=== PATIENT | female | born 1980 | race Hispanic/Latino ===

== ENCOUNTER 2018-07-05 12:38 | Emergency (ER) | payer BC ==
[~2018-07-05] VITALS: Ht 160 cm; Wt 95.3 kg
--- OUTSIDE RECORDS SUMMARY | 2018-07-05 12:40 | XMS REPORT ---
Author Author [facility] Address Unknown Phone Unavailable Care Team Providers Care Medical Lab Assistant Name Role Phone Unavailable Unavailable Payers Payer Name Policy Type Policy Number Effective Date Expiration Date Problems This patient has no known problems. Allergies, Adverse Reactions, Alerts Allergy Name Allergy Type Status Severity Reaction(s) Onset Date Inactive Date Treating Clinician Comments Secobarbital Sodium DA Active [place] 2015-08-25 00:00:00 Medications This patient has no known medications.
--- OUTSIDE RECORDS SUMMARY | 2018-07-05 12:40 | XMS REPORT | Continuity of Care Document ---
Author Author [facility] Interface Address Unknown Phone Unavailable Problems Problem Status Onset Date Classification Date Reported Comments Source UNK Active 03/03/2016 [facility] Discharge Diagnosis: Acute hemorrhoid 11/19/2015 11/22/2015 [facility] FINGER PAIN Active 11/19/2015 [facility] Hemorrhoids Active Problem 09/16/2016 [facility] Obesity Active Problem 09/16/2016 [facility] Medications Medication Details Route Status Patient Instructions Ordering Provider Order Date Source Dexamethasone 4 mg, Route: IVP, ONCE, Dosing Weight 98.267, kg, PRN Nausea & Vomiting, Start date: 09/13/16 9:26:00 CDT No Longer Active 09/13/2016 [facility] Ondansetron 4 mg, Route: IVP, ONCE, Dosing Weight 98.267, kg, PRN Nausea & Vomiting, Start date: 09/13/16 9:26:00 CDT No Longer Active 09/13/2016 [facility] Flumazenil 0.2 mg, Route: IVP, PRN, Dosing Weight 98.267, kg, PRN Benzodiazepine Reversal, Initial dose, Start date: 09/13/16 9:26:00 CDT, Duration: 30 day, Stop date: 10/13/16 9:25:00 CDT No Longer Active 09/13/2016 [facility] Fentanyl 50 microgram, Route: IVP, Q5Min, Dosing Weight 98.267, kg, PRN Pain Score 7-10, Priority: Routine, Start date: 09/13/16 9:26:00 CDT, Duration: 2 doses or times, Stop date: Limited # of times No Longer Active 09/13/2016 [facility] Hydromorphone 0.5 mg, Route: IVP, Q5Min, Dosing Weight 98.267, kg, PRN Pain Score 7-10, Start date: 09/13/16 9:26:00 CDT, Duration: 4 doses or times, Stop date: Limited # of times No Longer Active 09/13/2016 [facility] Morphine 4 mg, Route: IVP, Q5Min, Dosing Weight 98.267, kg, PRN Pain Score 7-10, Start date: 09/13/16 9:26:00 CDT, Duration: 3 doses or times, Stop date: Limited # of times No Longer Active 09/13/2016 [facility] Albuterol 0.83 MG/ML Inhalant Solution 2.49 mg, Route: NEB, Q20Min, Dosing Weight 98.267, kg, PRN Wheezing, Priority: STAT, Start date: 09/13/16 9:26:00 CDT, Duration: 30 day, Stop date: 10/13/16 9:25:00 CDT No Longer Active 09/13/2016 [facility] Diphenhydramine 12.5 mg, Route: IVP, Drug form: INJ, Q6H, Dosing Weight 98.267, kg, PRN Itching, Start date: 09/13/16 9:26:00 CDT, Duration: 30 day, Stop date: 10/13/16 9:25:00 CDT No Longer Active 09/13/2016 [facility] Naloxone 0.4 mg, Route: IVP, Q2MIN, Dosing Weight 98.267, kg, PRN Narcotic Reversal, Start date: 09/13/16 9:26:00 CDT, Duration: 8 doses or times, Stop date: Limited # of times No Longer Active 09/13/2016 [facility] Calcium Chloride 0.0014 MEQ/ML / Potassium Chloride 0.004 MEQ/ML / Sodium Chloride 0.103 MEQ/ML / Sodium Lactate 0.028 MEQ/ML Injectable Solution 1,000 mL, Rate: 125 ml/hr, Infuse over: 8 hr, Route: IV, Dosing Weight 98.267 kg, Total Volume: 1,000, Start date: 09/13/16 9:26:00 CDT, Duration: 30 day, Stop date: 10/13/16 9:25:00 CDT No Longer Active 09/13/2016 [facility] Meperidine 12.5 mg, Route: IVP, Q30Min, Dosing Weight 98.267, kg, PRN Other -See Comment, For shivering, Start date: 09/13/16 9:26:00 CDT, Duration: 2 doses or times, Stop date: Limited # of times No Longer Active 09/13/2016 [facility] Acetaminophen 1,000 mg, Route: PO, Drug form: TAB, ONCE, Dosing Weight 98.267, kg, PRN Pain Score 1-3, Start date: 09/13/16 9:26:00 CDT, Duration: 1 doses or times, Stop date: Limited # of times No Longer Active 09/13/2016 [facility] Labetalol 10 mg, Route: IVP, Q5Min, Dosing Weight 98.267, kg, PRN Elevated BP, Start date: 09/13/16 9:26:00 CDT, Duration: 5 doses or times, Stop date: Limited # of times No Longer Active 09/13/2016 [facility] Hydralazine 10 mg, Route: IVP, Q20Min, Dosing Weight 98.267, kg, PRN Elevated BP, Start date: 09/13/16 9:26:00 CDT, Duration: 2 doses or times, Stop date: Limited # of times No Longer Active 09/13/2016 [facility] esmolol 10 mg, Route: IVP, Q5Min, Dosing Weight 98.267, kg, PRN Other -See Comment, Start date: 09/13/16 9:26:00 CDT, Duration: 5 doses or times, Stop date: Limited # of times No Longer Active 09/13/2016 [facility] Oxycodone 5 mg, Route: PO, Drug form: TAB, Q4H, Dosing Weight 98.267, kg, PRN Pain Score 4-6, Start date: 09/13/16 9:26:00 CDT, Duration: 30 day, Stop date: 10/13/16 9:25:00 CDT No Longer Active 09/13/2016 [facility] ketOROLAC (ANES) IV, ONCE Inactive 09/13/2016 [facility] dexamethasone (ANES) Route: IV, Drug form: INJ, ONCE, Stop date: 09/13/16 9:25:00 CDT Inactive 09/13/2016 [facility] ondansetron (ANES) Route: IV, Drug form: INJ, ONCE, Stop date: 09/13/16 9:25:00 CDT Inactive 09/13/2016 [facility] propofol (ANES) Route: IV, Drug form: INJ, ONCE, Stop date: 09/13/16 9:25:00 CDT Inactive 09/13/2016 [facility] fentaNYL (ANES) Route: IV, Drug form: INJ, ONCE, Stop date: 09/13/16 9:25:00 CDT Inactive 09/13/2016 [facility] lidocaine (ANES) Route: IV, Drug form: INJ, ONCE, Stop date: 09/13/16 9:25:00 CDT Inactive 09/13/2016 [facility] midazolam (ANES) Route: IV, Drug form: SOLN, ONCE, Stop date: 09/13/16 9:25:00 CDT Inactive 09/13/2016 [facility] rocuronium (ANES) Route: IV, Drug form: INJ, ONCE, Stop date: 09/13/16 9:25:00 CDT Inactive 09/13/2016 [facility] neostigmine (ANES) Route: IV, Drug form: INJ, ONCE, Stop date: 09/13/16 9:25:00 CDT Inactive 09/13/2016 [facility] glycopyrrolate (ANES) Route: IV, Drug form: INJ, ONCE, Stop date: 09/13/16 9:25:00 CDT Inactive 09/13/2016 [facility] Acetaminophen 325 MG / Hydrocodone Bitartrate 5 MG Oral Tablet 1 tab, Route: PO, Dosing Weight 98.267, kg, Q4H, PRN Pain Score 4-6, Start date: 09/13/16 9:12:00 CDT, Duration: 30 day, Stop date: 10/13/16 9:11:00 CDT No Longer Active 09/13/2016 [facility] LR 500 ml INJ (ANES) Route: IV, Total Volume: 500, Start date: 09/13/16 8:41:00 CDT, Stop date: 09/13/16 9:41:00 CDT Inactive 09/13/2016 [facility] Ketorolac Tromethamine 10 MG Oral Tablet 10 mg=1 tab, PO, Q6H, PRN Pain, # 20 tab, 0 Refill(s), Pharmacy: [id number] Active 09/13/2016 [facility] Albuterol 0.833 MG/ML / Ipratropium [place] 0.167 MG/ML Inhalant Solution 3 mL, Route: NEB, Dosing Weight 98.267, kg, ONCE, STAT, Start date: 09/13/16 7:03:00 CDT, Stop date: 09/13/16 7:03:00 CDT Inactive 09/13/2016 [facility] Calcium Chloride 0.0014 MEQ/ML / Potassium Chloride 0.004 MEQ/ML / Sodium Chloride 0.103 MEQ/ML / Sodium Lactate 0.028 MEQ/ML Injectable Solution 1,000 mL, Rate: 25 ml/hr, Infuse over: 40 hr, Route: IV, Dosing Weight 98.267 kg, Total Volume: 1,000, Start date: 09/13/16 7:03:00 CDT, Duration: 30 day, Stop date: 10/13/16 7:02:00 CDT Inactive 09/13/2016 [facility] Home Medication Refill(s) 0 Active 09/06/2016 [facility] rosuvastatin PO, Bedtime, 0 Refill(s) Active 09/06/2016 [facility] Acetaminophen 325 MG / Hydrocodone Bitartrate 5 MG Oral Tablet [[place] 5/325] 1 tab, PO, Q6H, PRN for pain, No driving while under the influence of this medication, X 5 day, # 20 tab, 0 Refill(s) Active 11/20/2015 [facility] Acetaminophen 325 MG / Hydrocodone Bitartrate 5 MG Oral Tablet [[place] 5/325] 1 tab, Route: PO, Drug Form: TAB, Dosing Weight 98.182, kg, ONCE, STAT, Start date: 11/19/15 20:32:00 CDT, Stop date: 11/19/15 20:32:00 CDT Inactive 11/20/2015 [facility] Allergies, Adverse Reactions, Alerts Substance Category Reaction Severity Reaction type Status Date Reported Comments Source [place] Sodium Assertion Drug allergy Active [facility] Immunizations Immunization Date Given Site Status Last Updated Comments Source Results Order Name Results Value Reference Range Date Interpretation Comments Source URINE CHEM U Preg Negative (09/13/16 6:54 AM) Negative 09/13/2016 [facility] ELECTROLYTES Chloride Lvl 102 meq/L 95 - 109 09/06/2016 [facility] ELECTROLYTES Calcium Lvl 8.7 mg/dL 8.5 - 10.5 09/06/2016 [facility] ELECTROLYTES CO2 28 meq/L 24 - 32 09/06/2016 [facility] ELECTROLYTES Creatinine Lvl 0.51 mg/dL 0.50 - 1.40 09/06/2016 [facility] ELECTROLYTES Sodium Lvl 137 meq/L 135 - 145 09/06/2016 [facility] ELECTROLYTES Potassium Lvl 4.1 meq/L 3.5 - 5.1 09/06/2016 [facility] ELECTROLYTES eGFR 122 mL/min/1.73m2 09/06/2016 Result Comment: The eGFR is calculated using the CKD-EPI formula. In most young, healthy individuals the eGFR will be >90 mL/min/1.73m2. The eGFR declines with age. An eGFR of 60-89 may be normal in some populations, particularly the elderly, for whom the CKD-EPI formula has not been extensively validated. Use of the eGFR is not recommended in the following populations: Individuals with unstable creatinine concentrations, including patients and those with serious co-morbid conditions. Patients with extremes in muscle mass or diet. The data above are obtained from the National Kidney Disease Education Program (NKDEP) which additionally recommends that when the eGFR is used in patients with extremes of body mass index for purposes of drug dosing, the eGFR should be multiplied by the estimated BMI. [facility] ELECTROLYTES Glucose Lvl 101 mg/dL 70 - 99 09/06/2016 [facility] ELECTROLYTES BUN 9 mg/dL 7 - 22 09/06/2016 [facility] ELECTROLYTES AGAP 11.1 meq/L 10.0 - 20.0 09/06/2016 [facility] HEMATOLOGY PTT 30.0 s 22.9 - 35.8 09/06/2016 [facility] HEMATOLOGY PT 13.6 s 12.0 - 14.7 09/06/2016 [facility] HEMATOLOGY INR 1.02 0.85 - 1.17 09/06/2016 [facility] HEMATOLOGY Hct 36.5 % 36.0 - 48.0 09/06/2016 [facility] HEMATOLOGY Hgb 12.0 g/dL 12.0 - 16.0 09/06/2016 [facility] URINE AND STOOL UA Urobilinogen <=1.0 mg/dL 0.1 - 1.0 09/06/2016 [facility] URINE AND STOOL UA RBC 2 /HPF 0 - 2 09/06/2016 [facility] URINE AND STOOL UA Spec Grav 1.018 <=1.030 09/06/2016 [facility] URINE AND STOOL UA Protein Negative mg/dL Negative mg/dL 09/06/2016 [facility] URINE AND STOOL UA Turbidity Clear (09/06/16 11:34 AM) Clear 09/06/2016 [facility] URINE AND STOOL UA pH 6.0 5.0 - 8.0 09/06/2016 [facility] URINE AND STOOL UA Nitrite Negative (09/06/16 11:34 AM) Negative 09/06/2016 [facility] URINE AND STOOL UA Glucose Negative mg/dL Negative mg/dL 09/06/2016 [facility] URINE AND STOOL UA Ketones Negative mg/dL Negative mg/dL 09/06/2016 [facility] URINE AND STOOL UA Bili Negative *NA* (09/06/16 11:34 AM) Negative 09/06/2016 [facility] URINE AND STOOL UA Blood Negative (09/06/16 11:34 AM) Negative 09/06/2016 [facility] URINE AND STOOL UA Sq Epi Occasional /LPF Few /LPF 09/06/2016 [facility] URINE AND STOOL UA WBC 1 /HPF 0 - 5 09/06/2016 [facility] URINE AND STOOL UA Leuk Est Negative (09/06/16 11:34 AM) Negative 09/06/2016 [facility] URINE AND STOOL UA Color Yellow *NA* (09/06/16 11:34 AM) Yellow 09/06/2016 [facility] Vital Signs Vital Sign Value Date Comments Source Systolic (mm Hg) 111 09/13/2016 [facility] Diastolic (mm Hg) 61 09/13/2016 [facility] Systolic (mm Hg) 112 09/13/2016 [facility] Diastolic (mm Hg) 70 09/13/2016 [facility] Respitory Rate 15 09/13/2016 [facility] Systolic (mm Hg) 112 09/13/2016 [facility] Diastolic (mm Hg) 69 09/13/2016 [facility] Respitory Rate 18 09/13/2016 [facility] Respitory Rate 20 09/13/2016 [facility] Heart Rate 81 09/13/2016 [facility] Heart Rate 79 09/06/2016 [facility] Temperature Oral (F) 97.7 F 09/06/2016 [facility] BMI Calculated 38.38 09/06/2016 [facility] Weight 98.267 09/06/2016 [facility] Height 160.02 cm 09/06/2016 [facility] Temperature Oral (F) 97.8 F 11/20/2015 [facility] Respitory Rate 18 11/20/2015 [facility] Heart Rate 84 11/20/2015 [facility] Systolic (mm Hg) 136 11/20/2015 [facility] Diastolic (mm Hg) 78 11/20/2015 [facility] Respitory Rate 17 11/20/2015 [facility] Heart Rate 76 11/20/2015 [facility] Systolic (mm Hg) 132 11/20/2015 [facility] Diastolic (mm Hg) 76 11/20/2015 [facility] Systolic (mm Hg) 147 11/20/2015 [facility] Diastolic (mm Hg) 63 11/20/2015 [facility] Temperature Oral (F) 97.8 F 11/20/2015 [facility] Heart Rate 81 11/20/2015 [facility] Respitory Rate 17 11/20/2015 [facility] Height 160.02 cm 11/19/2015 [facility] Weight 98.182 11/19/2015 [facility] BMI Calculated 38.34 11/19/2015 [facility] Temperature Oral (F) 98.0 F 11/19/2015 [facility] Encounters Location Location Details Encounter Type Encounter Number Reason For Visit Attending Provider ADM Date DC Date Status Source [facility] Emergency [id number] Endy Swanson 11/19/2015 11/20/2015 [facility] Outpatient [id number] THEODOROS VOLOYIANNIS 03/02/2016 [facility] Outpatient [id number] THEODOROS VOLOYIANNIS 07/05/2016 [facility] Outpatient [id number] THEODOROS VOLOYIANNIS 09/13/2016 [facility] [id number] Theodoros Voloyiannis 09/13/2016 09/13/2016 [facility] Outpatient [id number] OLI GROVES 09/27/2016 [facility] Procedures Procedure Code Date Perfomer Comments Source Destruction of hemorrhoid [id number] [facility] Colonoscopy [id number] [facility] TL - Tubal ligation [id number] [facility]
--- OUTSIDE RECORDS SUMMARY | 2018-07-05 12:40 | XMS REPORT | Summary of Care ---
Author Author [facility] Organization [facility] Address Unknown Phone Unavailable Encounter FRED Maynard(ISAIAH) [id number] Date(s): 09/13/16 - 09/13/16 [facility] [address] [place] [address]- Discharge Disposition: Home or Self Care Attending Physician: Joseph Ayers MD Referring Physician: Joseph Ayers MD Vital Signs 1 2 3 Most recent to oldest [Reference Range]: 160.02 cm (09/06/16 10:54 AM) Height 97.7 DegF (09/06/16 11:02 AM) Temperature Oral [96.4-99.1 DegF] 111/61 mmHg (09/13/16 10:45 AM) 112/70 mmHg (09/13/16 10:30 AM) 112/69 mmHg (09/13/16 10:00 AM) Blood Pressure [90-140/60-90 mmHg] 15 BRMIN (09/13/16 10:00 AM) 18 BRMIN (09/13/16 9:45 AM) 20 BRMIN (09/13/16 9:30 AM) Respiratory Rate [14-20 BRMIN] 81 bpm (09/13/16 7:06 AM) 79 bpm (09/06/16 11:02 AM) Peripheral Pulse Rate [60-100 bpm] 98.267 kg (09/06/16 10:54 AM) Weight 38.38 m2 (09/06/16 10:54 AM) Body Mass Index Problem List Condition Effective Dates Status Health Status Informant Hemorrhoids(Confirme Active d) Obesity(Confirmed) Active Allergies, Adverse Reactions, Alerts Substance Reaction Severity Status Se[place]al Sodium Active Medications acetaminophen-hydrocodone 325 mg-5 mg oral tablet 1 tab, Route: PO, Dosing Weight 98.267, kg, Q4H, PRN Pain Score 4-6, Start date: 09/13/16 9:12:00 CDT, Duration: 30 day, Stop date: 10/13/16 9:11:00 CDT Start Date: 09/13/16 Stop Date: 09/14/16 Status: Discontinued albuterol-ipratropium 2.5-0.5 mg inhalation solution 3 mL, Route: NEB, Dosing Weight 98.267, kg, ONCE, STAT, Start date: 09/13/16 7:0 3:00 CDT, Stop date: 09/13/16 7:03:00 CDT Start Date: 09/13/16 Stop Date: 09/13/16 Status: Discontinued ANES acetaminophen 1,000 mg, Route: PO, Drug form: TAB, ONCE, Dosing Weight 98.267, kg, PRN Pain Sc ore 1-3, Start date: 09/13/16 9:26:00 CDT, Duration: 1 doses or times, Stop date : Limited # of times Start Date: 09/13/16 Stop Date: 09/14/16 Status: Discontinued ANES albuterol 0.083% inhalation solution 2.49 mg, Route: NEB, Q20Min, Dosing Weight 98.267, kg, PRN Wheezing, Priority: S TAT, Start date: 09/13/16 9:26:00 CDT, Duration: 30 day, Stop date: 10/13/16 9:2 5:00 CDT Start Date: 09/13/16 Stop Date: 09/14/16 Status: Discontinued ANES dexamethasone 4 mg, Route: IVP, ONCE, Dosing Weight 98.267, kg, PRN Nausea & Vomiting, Start date: 09/13/16 9:26:00 CDT Start Date: 09/13/16 Stop Date: 09/14/16 Status: Discontinued ANES diphenhydrAMINE 12.5 mg, Route: IVP, Drug form: INJ, Q6H, Dosing Weight 98.267, kg, PRN Itching, Start date: 09/13/16 9:26:00 CDT, Duration: 30 day, Stop date: 10/13/16 9:25:00 CDT Start Date: 09/13/16 Stop Date: 09/14/16 Status: Discontinued ANES esmolol 10 mg, Route: IVP, Q5Min, Dosing Weight 98.267, kg, PRN Other -See Comment, Star t date: 09/13/16 9:26:00 CDT, Duration: 5 doses or times, Stop date: Limited # o f times Start Date: 09/13/16 Stop Date: 09/14/16 Status: Discontinued ANES fentaNYL 50 microgram, Route: IVP, Q5Min, Dosing Weight 98.267, kg, PRN Pain Score 7-10, Priority: Routine, Start date: 09/13/16 9:26:00 CDT, Duration: 2 doses or times, Stop date: Limited # of times Start Date: 09/13/16 Stop Date: 09/14/16 Status: Discontinued ANES fentaNYL 25 microgram, Route: IVP, Q5Min, Dosing Weight 98.267, kg, PRN Pain Score 4-6, P riority: Routine, Start date: 09/13/16 9:26:00 CDT, Duration: 4 doses or times, Stop date: Limited # of times Start Date: 09/13/16 Stop Date: 09/14/16 Status: Discontinued ANES flumazenil 0.2 mg, Route: IVP, PRN, Dosing Weight 98.267, kg, PRN Benzodiazepine Reversal, Initial dose, Start date: 09/13/16 9:26:00 CDT, Duration: 30 day, Stop date: 09/21 9:25:00 CDT Start Date: 09/13/16 Stop Date: 09/14/16 Status: Discontinued ANES hydrALAZINE 10 mg, Route: IVP, Q20Min, Dosing Weight 98.267, kg, PRN Elevated BP, Start date : 09/13/16 9:26:00 CDT, Duration: 2 doses or times, Stop date: Limited # of time s Start Date: 09/13/16 Stop Date: 09/14/16 Status: Discontinued ANES HYDROmorphone 0.5 mg, Route: IVP, Q5Min, Dosing Weight 98.267, kg, PRN Pain Score 7-10, Start date: 09/13/16 9:26:00 CDT, Duration: 4 doses or times, Stop date: Limited # of times Start Date: 09/13/16 Stop Date: 09/14/16 Status: Discontinued ANES labetalol 10 mg, Route: IVP, Q5Min, Dosing Weight 98.267, kg, PRN Elevated BP, Start date: 09/13/16 9:26:00 CDT, Duration: 5 doses or times, Stop date: Limited # of times Start Date: 09/13/16 Stop Date: 09/14/16 Status: Discontinued ANES meperidine 12.5 mg, Route: IVP, Q30Min, Dosing Weight 98.267, kg, PRN Other -See Comment, F or shivering, Start date: 09/13/16 9:26:00 CDT, Duration: 2 doses or times, Stop date: Limited # of times Start Date: 09/13/16 Stop Date: 09/14/16 Status: Discontinued ANES morphine Sulfate 4 mg, Route: IVP, Q5Min, Dosing Weight 98.267, kg, PRN Pain Score 7-10, Start da te: 09/13/16 9:26:00 CDT, Duration: 3 doses or times, Stop date: Limited # of ti mes Start Date: 09/13/16 Stop Date: 09/14/16 Status: Discontinued ANES morphine Sulfate 2 mg, Route: IVP, Q5Min, Dosing Weight 98.267, kg, PRN Pain Score 4-6, Start liliane e: 09/13/16 9:26:00 CDT, Duration: 5 doses or times, Stop date: Limited # of emigdio es Start Date: 09/13/16 Stop Date: 09/14/16 Status: Discontinued ANES naloxone 0.4 mg, Route: IVP, Q2MIN, Dosing Weight 98.267, kg, PRN Narcotic Reversal, Star t date: 09/13/16 9:26:00 CDT, Duration: 8 doses or times, Stop date: Limited # o f times Start Date: 09/13/16 Stop Date: 09/14/16 Status: Discontinued ANES ondansetron 4 mg, Route: IVP, ONCE, Dosing Weight 98.267, kg, PRN Nausea & Vomiting, Start date: 09/13/16 9:26:00 CDT Start Date: 09/13/16 Stop Date: 09/14/16 Status: Discontinued ANES oxyCODONE 5 mg, Route: PO, Drug form: TAB, Q4H, Dosing Weight 98.267, kg, PRN Pain Score 4 -6, Start date: 09/13/16 9:26:00 CDT, Duration: 30 day, Stop date: 10/13/16 9:25 :00 CDT Start Date: 09/13/16 Stop Date: 09/14/16 Status: Discontinued dexamethasone (ANES) Route: IV, Drug form: INJ, ONCE, Stop date: 09/13/16 9:25:00 CDT Start Date: 09/13/16 Stop Date: 09/13/16 Status: Completed fentaNYL (ANES) Route: IV, Drug form: INJ, ONCE, Stop date: 09/13/16 9:25:00 CDT Start Date: 09/13/16 Stop Date: 09/13/16 Status: Completed glycopyrrolate (ANES) Route: IV, Drug form: INJ, ONCE, Stop date: 09/13/16 9:25:00 CDT Start Date: 09/13/16 Stop Date: 09/13/16 Status: Completed Home Medication Refill(s) 0 Start Date: 09/06/16 Status: Ordered ketOROLAC (ANES) IV, ONCE Start Date: 09/13/16 Stop Date: 09/13/16 Status: Completed ketOROLAC 10 mg oral tablet 10 mg=1 tab, PO, Q6H, PRN Pain, # 20 tab, 0 Refill(s), Pharmacy: [facility] [place] [id number] Start Date: 09/13/16 Stop Date: 09/18/16 Status: Ordered Lactated Ringers Injection IV 1000 mL 1,000 mL, Rate: 125 ml/hr, Infuse over: 8 hr, Route: IV, Dosing Weight 98.267 kg , Total Volume: 1,000, Start date: 09/13/16 9:26:00 CDT, Duration: 30 day, Stop date: 10/13/16 9:25:00 CDT Start Date: 09/13/16 Stop Date: 09/14/16 Status: Discontinued Lactated Ringers Injection IV 1000 mL 1,000 mL, Rate: 25 ml/hr, Infuse over: 40 hr, Route: IV, Dosing Weight 98.267 kg , Total Volume: 1,000, Start date: 09/13/16 7:03:00 CDT, Duration: 30 day, Stop date: 10/13/16 7:02:00 CDT Start Date: 09/13/16 Stop Date: 09/13/16 Status: Discontinued lidocaine (ANES) Route: IV, Drug form: INJ, ONCE, Stop date: 09/13/16 9:25:00 CDT Start Date: 09/13/16 Stop Date: 09/13/16 Status: Completed LR 500 ml INJ (ANES) Route: IV, Total Volume: 500, Start date: 09/13/16 8:41:00 CDT, Stop date: 09/13 9:41:00 CDT Start Date: 09/13/16 Stop Date: 09/13/16 Status: Completed midazolam (ANES) Route: IV, Drug form: SOLN, ONCE, Stop date: 09/13/16 9:25:00 CDT Start Date: 09/13/16 Stop Date: 09/13/16 Status: Completed neostigmine (ANES) Route: IV, Drug form: INJ, ONCE, Stop date: 09/13/16 9:25:00 CDT Start Date: 09/13/16 Stop Date: 09/13/16 Status: Completed ondansetron (ANES) Route: IV, Drug form: INJ, ONCE, Stop date: 09/13/16 9:25:00 CDT Start Date: 09/13/16 Stop Date: 09/13/16 Status: Completed propofol (ANES) Route: IV, Drug form: INJ, ONCE, Stop date: 09/13/16 9:25:00 CDT Start Date: 09/13/16 Stop Date: 09/13/16 Status: Completed rocuronium (ANES) Route: IV, Drug form: INJ, ONCE, Stop date: 09/13/16 9:25:00 CDT Start Date: 09/13/16 Stop Date: 09/13/16 Status: Completed rosuvastatin PO, Bedtime, 0 Refill(s) Start Date: 09/06/16 Status: Ordered Results ELECTROLYTES Most recent to 1 oldest [Reference Range]: Sodium Lvl [135-145 137 mEq/L mEq/L] (09/06/16 11:34 AM) Potassium Lvl 4.1 mEq/L [3.5-5.1 mEq/L] (09/06/16 11:34 AM) Chloride Lvl [95-109 102 mEq/L mEq/L] (09/06/16 11:34 AM) CO2 [24-32 mEq/L] 28 mEq/L (09/06/16 11:34 AM) AGAP [10.0-20.0 11.1 mEq/L mEq/L] (09/06/16 11:34 AM) CHEM PANEL Most recent to 1 oldest [Reference Range]: Creatinine Lvl 0.51 mg/dL [0.50-1.40 mg/dL] (09/06/16 11:34 AM) eGFR 122 mL/min/1.73m2 1 *NA* (09/06/16 11:34 AM) BUN [7-22 mg/dL] 9 mg/dL (09/06/16 11:34 AM) Glucose Lvl [70-99 101 mg/dL mg/dL] *HI* (09/06/16 11:34 AM) Calcium Lvl 8.7 mg/dL [8.5-10.5 mg/dL] (09/06/16 11:34 AM) 1Result Comment: The eGFR is calculated using the [...] from the National Kidney Disease Education Program ( NKDEP) which additionally recommends that when the eGFR is used in patients with extremes of body mass index for purposes of drug dosing, the eGFR should be mul tiplied by the estimated BMI. URINE CHEM Most recent to 1 oldest [Reference Range]: U Preg [Negative] Negative (09/13/16 6:54 AM) URINE AND STOOL Most recent to 1 oldest [Reference Range]: UA Turbidity [Clear] Clear (09/06/16 11:34 AM) UA Color [Yellow] Yellow *NA* (09/06/16 11:34 AM) UA pH [5.0-8.0] 6.0 (09/06/16 11:34 AM) UA Spec Grav 1.018 [<=1.030] (09/06/16 11:34 AM) UA Glucose [Negative Negative mg/dL mg/dL] *NA* (09/06/16 11:34 AM) UA Blood [Negative] Negative (09/06/16 11:34 AM) UA Ketones [Negative Negative mg/dL mg/dL] *NA* (09/06/16 11:34 AM) UA Protein [Negative Negative mg/dL mg/dL] (09/06/16 11:34 AM) UA Urobilinogen <=1.0 mg/dL [0.1-1.0 mg/dL] *NA* (09/06/16 11:34 AM) UA Bili [Negative] Negative *NA* (09/06/16 11:34 AM) UA Leuk Est Negative [Negative] (09/06/16 11:34 AM) UA Nitrite Negative [Negative] (09/06/16 11:34 AM) UA WBC [0-5 /HPF] 1 /HPF (09/06/16 11:34 AM) UA RBC [0-2 /HPF] 2 /HPF (09/06/16 11:34 AM) UA Sq Epi [Few /LPF] Occasional /LPF *NA* (09/06/16 11:34 AM) HEMATOLOGY Most recent to 1 oldest [Reference Range]: Hgb [12.0-16.0 g/dL] 12.0 g/dL (09/06/16 11:34 AM) Hct [36.0-48.0 %] 36.5 % (09/06/16 11:34 AM) PT [12.0-14.7 13.6 seconds seconds] (09/06/16 11:34 AM) INR [0.85-1.17] 1.02 (09/06/16 11:34 AM) PTT [22.9-35.8 30.0 seconds seconds] (09/06/16 11:34 AM) Immunizations No data available for this section Procedures Procedure Date Related Diagnosis Body Site Colonoscopy Destruction of hemorrhoid TL - Tubal ligation Social History Social History Type Response Employment/School Status: Unemployed. Alcohol Current, Type Beer. Frequency: 1-2 times per week. Smoking Status Former smoker; Type: Cigarettes; Exposure to Tobacco Smoke None; Cigarette Smoking Last 365 Days Yes; Reg Smoking Cessation Counseling No Assessment and Plan Extracted from: Title: Clinical Document Author: Joseph Ayers MD Date: 09/13/16 PREOPERATIVE DIAGNOSES Fistula in ano, skin tags, anal papilla. POSTOPERATIVE DIAGNOSES Fistula in ano, skin tags, anal papilla. PROCEDURE: Primary subcutaneous fistulotomy, excision of skin tags x 2, excision of anal papilla. SURGEON: Dr. Ayers. STEEL SAMPLER: None. ANESTHESIA: General. IV FLUIDS: 400mL URINE OUTPUT: No Oliveros. ESTIMATED BLOOD LOSS: 5mL FINDINGS: Popsterior midline subcutaneous fistula in ano with posterior midline skin tag and anal papilla, and anterior midline skin tag. SPECIMENS: None. DISPOSITION: Tolerated the procedure well, extubated in the operating room and transferred post-anesthesia care unit in stable hemodynamic condition. COUNTS: The sponge, needle, lap and instrument counts were correct at the end of the case x 2. COMPLICATIONS: None. INDICATIONS FOR PROCEDURE: The patient is a 36-year-old female who presents for fistulotomy and exision of skin tags and anal papilla. She understands her condition, the operative procedure plan, the risk/benefit ratio and the potential risks for complications to include but not limited to pain, bleeding, infection, damage to surrounding organs and structures, recurrence of the condition, need for further procedures and surgeries and perioperative cardiopulmonary risks. Informed consent was obtained. All questions were answered to her satisfaction. PROCEDURE IN DETAIL: The patient was brought to the operating room, placed on the table in supine position. General endotracheal anesthesia was induced successfully. The perineum was prepped and draped in the usual standard sterile fashion. 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 There was a healed fissure in ano in that site with a normal sphincter tone. There was also an anterior midline 3cm residual hemorrhoidal skin tag. We excised with cautery all skin tags and the anal papilla and no hemostasis was obtained. No suturing was required. We then performed a primary subcutaneous fistulotomy over the lacrymal probe with cautery and we curetted the fistulous tract, and passed the scar tissue to pathology. There was no abscess at this time. We did not divide any sphincter muscle fibers. Hemostasis was obtrained and the procedure was co mpleted. A Surgicel was left in place. Local anesthesia was injected. Extracted from: Title: preop Author: Ginger Latham, MPH, Date: 09/13/16 PA-C Assessment/Plan We discussed the patient's current sxs and at this time I recommend to proceed with primary fistulotomy and excision of anal skin tag and anal papilla and she agrees to proceed The patient agrees to proceed with the procedure. Risks, benefits and alternatives to the procedure were discussed in great detail. The patient will schedule the procedure in the near future. All questions were answered to the patient s satisfaction the pt was seen and examined together by Ginger Roy and Dr. Joseph Ayers, who provided a [id number] visit and performed the physical exam, assessment & plan, and the note transcribed by Ginger Roy [3]
--- OUTSIDE RECORDS SUMMARY | 2018-07-05 12:40 | XMS REPORT | Summary of Care ---
Author Author [facility] Organization [facility] Address Unknown Phone Unavailable Encounter FRED Maynard(ISAIAH) [id number] Date(s): 11/19/15 - 11/19/15 [facility] [address] [place] [address]- Discharge Diagnosis: Acute hemorrhoid Discharge Disposition: Home or Self Care Attending Physician: Endy Swanson MD Vital Signs 1 2 3 Most recent to oldest [Reference Range]: 160.02 cm (11/19/15 6:51 PM) Height 97.8 DegF (11/19/15 9:57 PM) 97.8 DegF (11/19/15 7:57 PM) 98.0 DegF (11/19/15 6:51 PM) Temperature Oral [96.4-99.1 DegF] 136/78 mmHg (11/19/15 9:57 PM) 132/76 mmHg (11/19/15 8:45 PM) 147/63 mmHg *HI* (11/19/15 7:57 PM) Blood Pressure [90-140/60-90 mmHg] 18 BRMIN (11/19/15 9:57 PM) 17 BRMIN (11/19/15 8:45 PM) 17 BRMIN (11/19/15 7:57 PM) Respiratory Rate [14-20 BRMIN] 84 bpm (11/19/15 9:57 PM) 76 bpm (11/19/15 8:45 PM) 81 bpm (11/19/15 7:57 PM) Peripheral Pulse Rate [60-100 bpm] 98.182 kg (11/19/15 6:51 PM) Weight 38.34 m2 (11/19/15 6:51 PM) Body Mass Index Problem List Condition Effective Dates Status Health Status Informant Hemorrhoids(Confirme Active d) Allergies, Adverse Reactions, Alerts No data available for this section Medications [place] 5/325 oral tablet 1 tab, PO, Q6H, PRN for pain, No driving while under the influence of this medic ation, X 5 day, # 20 tab, 0 Refill(s) Start Date: 11/19/15 Stop Date: 11/24/15 Status: Ordered [place] 5/325 oral tablet 1 tab, Route: PO, Drug Form: TAB, Dosing Weight 98.182, kg, ONCE, STAT, Start da te: 11/19/15 20:32:00 CDT, Stop date: 11/19/15 20:32:00 CDT Start Date: 11/19/15 Stop Date: 11/19/15 Status: Completed Results No data available for this section Immunizations No data available for this section Procedures Procedure Date Related Diagnosis Body Site Destruction of hemorrhoid Social History Social History Type Response Smoking Status Current some day smoker; Type: Cigarettes; Exposure to Tobacco Smoke None; Cigarette Smoking Last 365 Days No; Reg Smoking Cessation Counseling No Assessment and Plan No data available for this section
[2018-07-05 14:02] LABS: BILIRUBIN,URINE NEGATIVE (NEGATIVE); CLARITY,URINE SL CLOUDY (CLEAR); COLOR,URINE YELLOW (YELLOW); KETONES,URINE NEGATIVE (NEGATIVE); LEUKOCYTE ESTERASE ,URINE NEGATIVE (NEGATIVE); NITRITE,URINE NEGATIVE (NEGATIVE); PROTEIN,URINE DIPSTICK NEGATIVE (NEGATIVE); URINE UROBILINOGEN 0.2 mg/dL (0.2 - 1)
[2018-07-05 14:19] LABS: BACTERIA,URINE MODERATE /HPF; EPITHELIAL CELLS,URINE FEW /LPF
== END 2018-07-05 16:11 | disposition left against medical advice (07) ==
LOC: ER 12:38
DX: F41.1 Generalized anxiety disorder (principal)
CPT/HCPCS: 81001